=== PATIENT | female | born 1995 ===

== ENCOUNTER 2018-02-14 06:17 | Day surgery (SDC) | payer MEDICAID ==
[2018-02-14] MEDS ORDERED: Lidocaine Hydrochloride 10 ML INJ ONE (07:31)
[2018-02-14] MEDS ORDERED: ceFAZolin IV 1 gm in Dextrose 1 GM/50 ML BAG IVPB ONE (07:31)
[2018-02-14] MEDS ORDERED: Bupivacaine 0.25% 20 ML INJ IJ ONE (07:31)
[2018-02-14] MEDS ORDERED: Lidocaine Hydrochloride 5 ML INJ ONE (08:03)
[2018-02-14] MEDS ORDERED: Midazolam 2 MG/2 ML VIAL ONE (08:04)
[2018-02-14] MEDS ORDERED: Propofol 10 mg/ml Inj (20 ML) ONE ×2 (08:04→08:36)
[2018-02-14] MEDS ORDERED: ePHEDrine 50 mg/ml Inj ONE (08:11)
[2018-02-14] MEDS ORDERED: Lactated Ringer's 1,000 ML IV ONE (08:58)
--- NOTE | 2018-02-14 09:00 | PCM.SURG1 ---
Surgeon's Initial Post Op Note - Surgeon's Notes Surgeon: Dr. Villar Chemist: Luis Armando Rosenbaum PGY2 Type of Anesthesia: IV Sedation, Local (17cc 1% lidocaine & 0.25% marcaine) Anesthesia Administered By: Dr. Goyal Pre-Operative Diagnosis: Right foot Tailors bunion Operative Findings: See operative report. Materials: 3-0 vicryl, 4-0 vicryl, 4- 0 prolene Post-Operative Diagnosis: Same as above Operation Performed: Right foot Tailors bunionectomy Specimen/Specimens Removed: Right foot bone consistent with tailors bunion Estimated Blood Loss: EBL {In ML}: 1 Blood Products Given: N/A Drains Used: No Drains Post-Op Condition: Good Date of Surgery/Procedure: 02/14/18 Time of Surgery/Procedure: 09:00
[2018-02-14] MEDS ORDERED: Oxycodone/Acetaminophen 5/325 mg Tab PO PRN ×2 (09:01)
[2018-02-14] MEDS ORDERED: HYDROmorphone 0.5 mg/0.5 ml ISec IVP PRN (09:06)
[2018-02-14] MEDS ORDERED: Lactated Ringer's 1,000 ML IV SCH (09:15)
--- NOTE | 2018-02-14 10:16 | RAD ---
Date of service: 02/14/2018 PROCEDURE: Right Foot Radiographs. HISTORY: s/p right foot tailors bunionectomy COMPARISON: None. FINDINGS: BONES: Status post osteotomy distal aspect 5th metatarsal. No other fracture. No lytic or blastic osseous lesion. JOINTS: Normal. SOFT TISSUES: Normal. OTHER FINDINGS: None. IMPRESSION: Osteotomy 5th metatarsal head.
[2018-02-14 10:44] VITALS: O2SAT 100
[2018-02-14 11:34] VITALS: BP 100/52; PULSE 78; RESP 18; TEMP 97.5
--- NOTE | 2018-02-14 22:13 | OP ---
PROCEDURE DATE: 02/14/2018 PREOPERATIVE DIAGNOSIS: Right foot tailor's bunion. POSTOPERATIVE DIAGNOSIS: Right foot tailor's bunion. PROCEDURE PERFORMED: Right foot tailor's bunionectomy. SURGEON: Bautista Villar DPM MEAT CUTTING TEACHER: Tree Rosenbaum DPM, PGY-2 ANESTHESIA: IV sedation with local, 17 mL of 1:1 mixture of 1% lidocaine and 0.25% Marcaine plain. ANESTHESIOLOGIST: Dr. Goyal. INDICATION: The patient is a 22-year-old female with the above-mentioned diagnosis. The patient is being treated by Dr. Villar in his office on an outpatient basis, where she has exhausted multiple forms of conservative treatment. The patient seeks surgical intervention at this time. All risks, benefits and possible complications to the proposed procedure have been explained to the patient at length. The patient verbalized understanding and wishes to proceed. All questions were answered. No guarantees were given nor implied. Consent was signed. NPO was confirmed prior to taking the patient to the operating room. PREPARATION: The patient was brought into the operating room and placed on the operating room table in supine position. Pneumatic ankle tourniquet was placed onto the right lower extremity in the supramalleolar position. Once IV sedation was achieved, the local injection of 17 mL of 1:1 mixture of 1% lidocaine and 0.25% Marcaine plain was administered via a reverse Duran fashion. Once local anesthesia was achieved, the foot was then prepped and draped in normal sterile manner. An Esmarch was used to exsanguinate the limb. The tourniquet was inflated to 250 mmHg and the procedure began. DESCRIPTION OF PROCEDURE: Right foot tailor's bunionectomy: Attention was directed to the dorsolateral aspect of the fifth metatarsal where an approximately 4-cm linear longitudinal incision was made lateral and parallel to the extensor digitorum longus. The incision was deepened to the subcutaneous tissue with care being taken to identify and retract all vital neurovascular structures. All bleeders were ligated and cauterized as necessary. At this time, a linear dorsal incision was made overlying the fifth metatarsal. A periosteal incision was then reflected medially and laterally thus exposing the fifth metatarsal head and shaft into the operative field. Next, utilizing a sagittal bone saw, the lateral prominence was resected and passed from the operative field. At this time, it was determined intraoperatively that the bone resection was adequate to allow for correction of the prominence on the lateral aspect of the patient's foot. At this time, the wound was irrigated with copious amounts of sterile normal saline. The periosteal structures were reapproximated and coapted using 3-0 Vicryl, subcuticular structures were reapproximated and coapted using 4-0 Vicryl and the skin was reapproximated with 4-0 Prolene in a simple suture technique. Postoperative dressings included Xeroform gauze, Turner, Kerlix and Coban. POSTOPERATIVE CONDITION: The patient tolerated the procedure and anesthesia well and was escorted to the recovery room with vital signs stable and neurovascular status intact to the right lower extremity. The patient will follow up with Dr. Villar in his office on an outpatient basis. Tree Rosenbaum DPM <Bautista Villar DPM>
== END 2018-02-14 11:42 | disposition home or self-care (01) ==
LOC: C.SDS 06:17
PROVIDERS: ATTEND Podiatrist
DX: M21.611 Bunion of right foot (principal)
CPT/HCPCS: 28292; 73630; 88304; 97116; 97161; G8978; G8979; G8980; J0690; J2250; J2704; J3010; J7120